=== PATIENT | female | born 1990 | race Caucasian/White ===

== ENCOUNTER 2023-07-25 05:20 | Inpatient (IN) | payer BC, SELFPAY ==
[2023-07-25 05:28] VITALS: BMI 33.9
[2023-07-25] MEDS: LR 1000 IV (05:45)
[2023-07-25 05:59] VITALS: BP 133/93
[2023-07-25 06:12] LABS: Hematocrit 32.5 % (37.0-47.0); Hemoglobin 10.8 g/dL (12.0-16.0); Mean Corp Hgb Conc. 33.2 g/dL (33.0-37.0); Mean Corpuscular Hgb 24.3 pg (27.0-31.0); Mean Corpuscular Volume 73.2 fL (81.0-99.0); Mean Platelet Volume 10.7 fL (7.4-10.4); Platelet Count 299 10^3/uL (130-400); Red Blood Cell Count 4.44 10^6/uL (4.20-5.40); Red Cell Dist. Width 14.2 % (11.5-14.5); White Blood Cell Count 12.1 10^3/uL (4.8-10.8)
[2023-07-25 06:13] LABS: Glucose - Point of Care 81 mg/dl (70-99)
[2023-07-25] MEDS: GENTAMICIN 60 MG IV (06:52)
[2023-07-25] MEDS: BICITRA 30 ML PO (07:01)
[2023-07-25] MEDS: TYLENOL 1000 MG PO (07:01)
[2023-07-25] MEDS: CLEOCIN 50 IV (07:02)
[2023-07-25] MEDS: METHERGINE INJECTION 0.200000000000000011 MG IM (09:41)
[2023-07-25 10:43] LABS: Hematocrit 32.9 % (37.0-47.0); Hemoglobin 10.4 g/dL (12.0-16.0); Mean Corp Hgb Conc. 31.6 g/dL (33.0-37.0); Mean Corpuscular Hgb 23.9 pg (27.0-31.0); Mean Corpuscular Volume 75.6 fL (81.0-99.0); Mean Platelet Volume 11.1 fL (7.4-10.4); Platelet Count 248 10^3/uL (130-400); Red Blood Cell Count 4.35 10^6/uL (4.20-5.40); Red Cell Dist. Width 13.9 % (11.5-14.5); White Blood Cell Count 15.5 10^3/uL (4.8-10.8)
[2023-07-25 10:54] VITALS: BP 121/67
[2023-07-25 10:56] LABS: INR 1.03; PT 13.5 Sec (11.4-14.6)
[2023-07-25 10:57] LABS: APTT 26.8 Sec (23.4-35.0); Fibrinogen 482 MG/DL (199-459)
[2023-07-25 11:11] VITALS: BP 119/65; BP 126/70
[2023-07-25 12:30] VITALS: BP 128/75
[2023-07-25] MEDS: TYLENOL 650 MG PO (20:43)
[2023-07-26] MEDS: TYLENOL 650 MG PO ×4 (06:21→21:00)
[2023-07-26 06:51] LABS: Hematocrit 21.7 % (37.0-47.0); Hemoglobin 7.3 g/dL (12.0-16.0); Mean Corp Hgb Conc. 33.6 g/dL (33.0-37.0); Mean Corpuscular Hgb 25.1 pg (27.0-31.0); Mean Corpuscular Volume 74.6 fL (81.0-99.0); Mean Platelet Volume 10.8 fL (7.4-10.4); Platelet Count 214 10^3/uL (130-400); Red Blood Cell Count 2.91 10^6/uL (4.20-5.40); Red Cell Dist. Width 15.3 % (11.5-14.5); White Blood Cell Count 15.9 10^3/uL (4.8-10.8)
--- NOTE | 2023-07-26 08:11 | W.PN.ANS.POP ---
Anesthesia Post Operative
- Anesthesia Post Op Note
Vital Signs Stable-See Nursing Note: Yes
Airway Patent: Yes
Adequate Pain Control: Yes
Change in Mental Status: No
Current Postoperative Nausea & Vomiting: No
Anesthesia Complications: No
General Anesthetic Recall: No
Unplanned Admission: No
Post Op Hydration Adequate: Yes
[2023-07-26] MEDS: PRENATAL PLUS 1 TABLET PO (10:56)
[2023-07-26] MEDS: SENOKOT-S 1 TABLET PO (10:56)
[2023-07-26] MEDS: MYLICON 80 MG PO ×2 (10:57→21:00)
[2023-07-26] MEDS: MOTRIN 600 MG PO ×2 (14:46→21:00)
[2023-07-26] MEDS: FEOSOL 325 MG PO (20:02)
[2023-07-27] MEDS: TYLENOL 650 MG PO ×4 (03:10→22:38)
[2023-07-27] MEDS: MOTRIN 600 MG PO ×4 (03:10→22:38)
[2023-07-27] MEDS: FEOSOL 325 MG PO ×2 (09:28→20:12)
[2023-07-27] MEDS: SENOKOT-S 1 TABLET PO (09:28)
[2023-07-27] MEDS: PRENATAL PLUS 1 TABLET PO (09:33)
[2023-07-28] MEDS: MOTRIN 600 MG PO ×2 (05:37→12:02)
[2023-07-28] MEDS: TYLENOL 650 MG PO ×2 (05:37→12:02)
[2023-07-28] MEDS: FEOSOL 325 MG PO (08:28)
[2023-07-28] MEDS: PRENATAL PLUS 1 TABLET PO (08:28)
[2023-07-28] MEDS: SENOKOT-S 1 TABLET PO (08:29)
--- NOTE | 2023-07-28 11:56 | W.DS.TRANS ---
DC Summary - [employer]
-
Discharge Instructions:
Discharge Diagnosis/Procedures section
Instructions:
Stand-Alone Forms: LDRP Delivery
Changes to Home Medications: No
Discharge Medications:
DC Medications w/original date entered in [facility]
prenat.vits,eileen,lpx-iujy-hnvpf 1 tab PO DAILY Supplement 07/25/23
ibuprofen 600 mg tablet 600 mg PO [id number] PRN cramps #40 tabs 07/27/23
Home Medication Changes
Pending Results: No
Total time spent discharging patient (in min): 20
[2023-07-30 13:41] LABS: Syphilis/T. pallidum Ab Reflex Negative (Negative)
== END 2023-07-28 14:20 | disposition home or self-care (01) | DRG 787 ==
LOC: LDRP 05:20
PROVIDERS: ADMITTING PHYSICIAN Obstetrics & Gynecology
PROC: 30233N1 Transfusion of Nonautologous Red Blood Cells into Peripheral Vein, Percutaneous Approach (ICD-10-PCS; 2023-07-25)
PROC: 10D00Z1 Extraction of Products of Conception, Low, Open Approach (ICD-10-PCS; 2023-07-25)
DX: O44.43 Low lying placenta NOS or without hemorrhage, third trimester (principal); O72.1 Other immediate postpartum hemorrhage; O24.420 Gestational diabetes mellitus in childbirth, diet controlled; Z3A.39 39 weeks gestation of pregnancy; Z37.0 Single live birth
CPT/HCPCS: 88307; 36415; 76857; 82962; 85027; 85384; 85610; 85730; 86780; 86850; 86900; 86901; 86920; P9016